=== PATIENT | female | born 1945 | race Hispanic/Latino ===

== ENCOUNTER 2018-01-03 07:29 | Day surgery (SDC) | payer OTHER ==
[~2018-01-03] VITALS: Ht 160 cm; Wt 71.9 kg
[~2018-01-03 07:29] MED LIST: ASPI-555 PO; CARV6.25 PO; LEVO112T7 PO; LISI40TA4 PO; MECL12.585 PO; PANT40TA25 PO; SIMV20TA6 PO; SODIUM CHLORIDE 0.9% 1000ML 1,000 ML IV ONE; TRAM50TA4 PO
[2018-01-03 07:54] VITALS: BP 144/55
[2018-01-03] MEDS ORDERED: PROPOFOL 10 MG/ML 20ML VIAL IV ONE (08:34)
== END 2018-01-03 09:25 | disposition home or self-care (01) ==
LOC: ENDO 07:29 → DAH 07:29 → ENDO 09:25
PROVIDERS: ATTEND Internal Medicine Gastroenterology
DX: D12.8 Benign neoplasm of rectum (principal); R19.5 Other fecal abnormalities; K21.9 Gastro-esophageal reflux disease without esophagitis; I10 Essential (primary) hypertension; I25.10 Atherosclerotic heart disease of native coronary artery without angina pectoris; G47.33 Obstructive sleep apnea (adult) (pediatric); E03.9 Hypothyroidism, unspecified; M19.90 Unspecified osteoarthritis, unspecified site; F32.9 Major depressive disorder, single episode, unspecified; Z98.890 Other specified postprocedural states
CPT/HCPCS: 45380; 88305; 93005; A4606; J2704; J7030

== ENCOUNTER 2019-12-10 15:39 | Emergency (ER) | payer OTHER ==
[~2019-12-10 15:39] MED LIST changes: +MECL-183 PO; -MECL12.585 PO; +SIMV-43 PO; -SIMV20TA6 PO; -SODIUM CHLORIDE 0.9% 1000ML 1,000 ML IV ONE
[2019-12-10 16:27] LABS: BASOPHILS % (AUTO) 0.3 % (0.0-5.0); EOSINOPHILS % (AUTO) 2.1 % (0.0-8.0); HEMATOCRIT 35.6 % (36-48); LYMPHOCYTES % (AUTO) 14.4 % (21.0-51.0); MEAN CORPUSCULAR HEMOGLOBIN 27.9 pg (27.0-33.0); MEAN CORPUSCULAR VOLUME 87.3 fL (79-99); MONOCYTES % (AUTO) 6.7 % (3.0-13.0); NEUTROPHILS % (AUTO) 76.2 % (40.0-77.0); PLATELET COUNT (AUTO) 204 K/uL (130-400); RED BLOOD CELL COUNT(AUTO) 4.08 MIL/uL (4.00-5.50); RED CELL DISTRIBUTION WIDTH 14.4 % (11.0-15.5); WHITE BLOOD COUNT (AUTO) 8.8 K/uL (4.8-10.8)
[2019-12-10 16:38] LABS: CREATININE 0.8 mg/dL (0.5-1.5); POTASSIUM 4.2 mmol/L (3.5-5.1)
[2019-12-10 16:42] LABS: ALBUMIN 3.1 g/dL (3.5-5.0); BILIRUBIN,TOTAL 0.5 mg/dL (0.2-1.0); CRP QUANTITATIVE 75.5 mg/L (0.00-9.0); TOTAL PROTEIN, SERUM 7.5 g/dL (6.0-8.3)
[2019-12-10] MEDS ORDERED: IOHEXOL-350 50ML VIAL IV ONE (16:44)
[2019-12-10] MEDS ORDERED: SODIUM CHLORIDE 0.9% 1000ML 1,000 ML IV ONE (16:46)
[2019-12-10 17:37] LABS: ERYTHROCYTE SEDIMENTATION RATE 63 MM/HR (0-30)
== END 2019-12-10 18:46 | disposition home or self-care (01) ==
LOC: EDH 15:39
DX: K02.9 Dental caries, unspecified (principal); L03.211 Cellulitis of face; I10 Essential (primary) hypertension; E03.9 Hypothyroidism, unspecified; Z86.73 Personal history of transient ischemic attack (TIA), and cerebral infarction without residual deficits; Z98.51 Tubal ligation status
CPT/HCPCS: 36415; 70487; 80053; 85025; 85651; 86140; 87040 ×2; 99285; J7030; Q9967